=== PATIENT | female | born 1970 | race African-American/Black ===

== ENCOUNTER 2018-08-14 07:01 | Emergency (ER) | payer BC ==
--- NOTE | 2018-08-14 07:07 | UC ---
Respiratory Complaint HPI - HPI Summary HPI Summary: Patient is 48 year old female, who present today to the urgent care with for sinus pressure and headache past 2 weeks. She was seen at [facility] urgent care and did 10 days of Augmentin which she completed 4 days ago and still has symptoms. Headache is mainly frontal, there is associated fullness in her ears. She tried Neti -pot with some clearing and lot of discharge. She reports that she has been having this sinusitis flares for past 3-4 years and had seen ENT a few years back She notices some cough at times denies any fever, chills or chest pain or shortness of breath Denies any abdominal pain , nausea or vomiting , diarrhea or constipation. Patient tried Advil sinus relief without much relief. - History of Current Complaint Stated Complaint: SINUS PAIN Time Seen by Provider: 08/14/18 07:05 Hx Obtained From: Patient Hx Last Menstrual Period: status post hysterectomy - Allergies/Home Medications Allergies/Adverse Reactions: Allergies Allergy/AdvReac Type Severity Reaction Status Date / Time MS Sulfamethoxazole Allergy Severe nausea, Verified 11/10/15 10:17 w/Trimethoprim vomiting [From Bactrim] Home Medications: Home Medications Esomeprazole(NF) [Nexium(NF)] 08/14/18 [History] Naproxen Sodium/Pseudoephedrin [Aleve-D Sinus and Cold Caplet] 08/14/18 [ History] PMH/Surg Hx/FS Hx/Imm Hx - Additional Past Medical History Additional PMH: Hypothyroidism Gastritis Prior episodes of sinusitis - Surgical History Surgical History: Yes Surgery Procedure, Year, and Place: tubal, hysterectomy. choley - Family History Known Family History: Positive: None, Hypertension - Mother, Diabetes, Other - NONCONTRIBUTORY Family History: FHx of Lung CA (Mother) - Social History Alcohol Use: Occasionally Substance Use Type: None Smoking Status (MU): Never Smoked Tobacco Review of Systems All Other Systems Reviewed And Are Negative: Yes Constitutional: Positive: Fatigue Skin: Positive: Negative Eyes: Positive: Negative ENT: Positive: Sinus Congestion, Sinus Pain/Tenderness, Other - Ear fullness Respiratory: Positive: Negative Cardiovascular: Positive: Negative Gastrointestinal: Positive: Negative Genitourinary: Positive: Negative Motor: Positive: Negative Neurovascular: Positive: Negative Musculoskeletal: Positive: Negative Neurological: Positive: Headache - Frontal Psychological: Positive: Negative Is Patient Immunocompromised?: No Physical Exam - Summary Physical Exam Summary: Physical Exam: Const: Appears well. No signs of apparent distress present. Alert and oriented x 3. Musculo: Walks with a normal gait. Head/Face: Atraumatic, normocephalic on inspection. Eyes: EOMI and PERRLA in both eyes. Conjunctivae clear. No discharge noted ENT: Tenderness to palpation is mainly noted at the ethmoid and maxillary sinuses bilaterally. Hearing normal, TM normal appearing bilaterally . Nontender bilateral anterior cervical lymph nodes No significant pharyngeal erythema or exudates Respiratory: Respirations are unlabored. Lungs clear to auscultation bilaterally, no wheezing , rhonchi or rales noted . CVS: Regular rate and Rhythm, S1S2 normal , no murmurs identified. Extremities: Peripheral circulation is grossly normal. Pulses 2+ Abdomen : Soft non tender , nondistended , Bowel sounds present . No guarding , rebound tenderness or rigidity noted. Skin: No lesions or rash located on the upper extremities or on the lower extremities. Neuro: Cranial nerves II to XII intact, motor and sensory intact. DTR Intact bilaterally. Mood is normal. Affect is normal. Triage Information Reviewed: Yes Vital Signs Reviewed: Yes Respiratory Course/Dx - Course Course Of Treatment: During the visit today, we discussed the findings and further plan. I will prescribe the medication to the pharmacy . Since she develops yeast vaginitis after course of antibiotics , I will also prescribe fluconazole so that if she needs she can take it. We discussed that she might need CT scan and further evaluation with ENT so she'll follow up with ENT if no improvement for definitive management. Patient expressed understanding . - Differential Dx/Diagnosis Provider Diagnosis: Sinusitis Discharge - Sign-Out/Discharge Documenting (check all that apply): Patient Departure All imaging exams completed and their final reports reviewed: Yes - Discharge Plan Condition: Stable Disposition: HOME Prescriptions: Fluconazole 150 MG TAB* [Diflucan 150 MG TAB*] 150 mg PO ONCE 1 Days #1 tablet Levofloxacin TAB* [Levaquin 750 MG TAB*] 750 mg PO DAILY 7 Days #7 tab Patient Education Materials: Sinusitis (ED) Referrals: Maribel Garzon MD [Primary Care Provider] - 1 Week Jewel Church MD [Medical Doctor] - 1 Week Additional Instructions: Please start taking the medication as prescribed to the pharmacy . If he developed yeast infection take one dose of fluconazole. Follow up with your primary care doctor in 1 week. Please follow up with ENT for the consult in 1 week. Patients blood pressure slightly high in Urgent care today , plan follow up with PCP for better control Return to Urgent care / ER if symptoms get worse. - Billing Disposition and Condition Condition: STABLE Disposition: Home
[2018-08-14 07:15] VITALS: BP 151/99
== END 2018-08-14 07:42 | disposition home or self-care (01) ==
LOC: UCEAST 07:01
DX: J32.9 Chronic sinusitis, unspecified (principal); Z88.2 Allergy status to sulfonamides
CPT/HCPCS: 99211; G0463

== ENCOUNTER 2019-12-09 21:55 | Emergency (ER) | payer BC, OTHER ==
--- OUTSIDE RECORDS SUMMARY | 2019-12-09 22:33 | XMS REPORT | Summary of Care ---
:1970 Author Organization [facility] Address [address] [place] [address] Care Team Providers Name Role Phone RyannMaribel Primary Care Provider Reason for Visit Reason Comments Cough Encounter Details Date Type Department Care Team Description 12/04/2019 Office Visit [place] Kelsi Reddy FNP-C Viral illness Practice [address] [facility] (Primary Dx) [address] [place] [address] [place] [address] [phone] Allergies Active Allergy Reactions Severity Noted Date Comments Bactrim 04/17/2008 documented as of this encounter (statuses as of 12/04/2019) Medications Medication Sig Dispensed Refills Start Date End Date Status Multivital Oral Tab Take by mouth. 0 Active IBUPROFEN PO Take 600 mg by 0 Active mouth NEEDED. valacyclovir (VALTREX) Take 4 Tabs by 16 Tab 3 03/18/2017 Active 500 MG Oral mouth TWICE TabIndications: DAILY. 8 pills Recurrent cold sores per occurrence PSEUDOEPHEDRINE HCL PO Take by mouth 0 Active NEEDED. Dvyxqpkzjgukh-RQ-GV-APA Take by mouth. 0 Active P (MUCINEX SINUS-MAX) [id number] MG Oral Cap fluocinonide (LIDEX) APPLY TWO TIMES A 15 g 0 02/21/2019 Active 0.05 % Apply externally DAY SPARINGLY OintmentIndications: Itching fluticasone (FLONASE) USE 2 SPRAYS IN 1 Bottle 5 04/17/2019 Active 50 MCG/ACT Nasal EACH NOSTRIL ONCE Suspension DAILY levothyroxine TAKE ONE TABLET 90 Tab 0 09/25/2019 Active (SYNTHROID) 175 MCG BY MOUTH EVERY Oral Tab MORNING BEFORE BREAKFAST documented as of this encounter (statuses as of 12/04/2019) Active Problems Problem Noted Date GERD (gastroesophageal reflux disease) 07/30/2017 Overview: On PPI Since 2015- Started in the hospital - Chest pain - S/P IQRA (total abdominal hysterectomy) 07/31/2014 Overview: Has ovaries; No cervix 2010 Knee pain, right 09/18/2013 Overview: Saw Dr Martinez Medial meniscus tear 09/18/2013 Overview: MRI shows thinning and degeneration but not silvana tear BMI 34.0-34.9,adult 02/10/2011 Overview: This patient's BMI has been calculated and is above average, and BMI management plan is completed. General patient education discussion including: obesity-related excess mortality Status post cholecystectomy 03/11/2009 Overview: 2006 Family hx-breast malignancy 07/13/2008 Overview: Replaced inactive diagnosis Hypothyroidism 04/17/2008 Overview: S/P I-131 ablation, 1996. Gestational diabetes 04/17/2008 Anemia 04/17/2008 Head injury 04/17/2008 Overview: Workers Comp, DOI: 03/23/2006, patient preparing meals at work, felt lightheaded, lost consciousness and fell to floor. [facility] ER, evaluation included CT scan of brain as well as plain film x-rays of the cervical spine, which were all completely normal. Lab work showed mild anemia with a hemoglobin of 10.2 and hematocrit of 20. documented as of this encounter (statuses as of 12/04/2019) Immunizations Name Administration Dates Next Due Influenza (IM) Preservative Free 06/12/2016, 09/07/2012 TDAP Vaccine 03/16/2019, 07/13/2008 Tuberculin Skin Test 01/26/2003 documented as of this encounter Social History Tobacco Use Types Packs/Day Years Used Date Former Smoker 0.25 Smokeless Tobacco: Never Used Alcohol Use Drinks/Week oz/Week Comments No 0 Standard drinks or equivalent 0.0 occas Sex Assigned at Date Recorded Not on file documented as of this encounter Last Filed Vital Signs Vital Sign Reading Time Taken Comments Blood Pressure 122/80 12/04/2019 1:59 PM EDT Pulse 89 12/04/2019 1:59 PM EDT Temperature 36.9 12/04/2019 1:59 PM EDT C (98.4 F) Respiratory Rate 20 12/04/2019 1:59 PM EDT Oxygen Saturation 99% 12/04/2019 1:59 PM EDT Inhaled Oxygen Concentration - - Weight - - Height - - Body Mass Index - - documented in this encounter Progress Notes Kelsi Lucas FNP-C - 12/04/2019 1:20 PM EDT PATIENT: Renetta Morales : 1970 DATE OF SERVICE: 12/04/2019 CHIEF COMPLAINT: Chief Complaint Patient presents with ? Cough Subjective HISTORY OF PRESENT ILLNESS: Renetta Morales is a 49-y.o. female. Complaint of cough that started 5 days ago Intermittent headaches Mild sore throat Sometimes cough is productive Denies nasal congestion denies fever and chills Denies N/V/D took theraflu with some relief Past Medical History: Diagnosis Date ? Anemia 04/17/2008 ? Asthma ? Gestational diabetes 04/17/2008 ? Head injury 04/17/2008 Workers Comp, DOI: 03/23/2006, patient preparing meals at work, felt lightheaded, lost consciousness and fell to floor. [facility] ER, evaluation included CT scan of brain as well as plain film x-rays of the cervical spine, which were all completely normal. Lab work showed mild anemia with a hemoglobin of 10.2 and hematocrit of 20. ? History of breast surgery ? Hypothyroidism 04/17/2008 S/P I-131 ablation, 1996. Family History Problem Relation Age of Onset ? Hypertension Mother ? Breast Cancer Mother 56 ? Diabetes Mother ? Hypertension Father ? Asthma Sister Current Outpatient Medications Medication Sig ? fluocinonide (LIDEX) 0.05 % Apply externally Ointment APPLY TWO TIMES A DAY SPARINGLY ? fluticasone (FLONASE) 50 MCG/ACT Nasal Suspension USE 2 SPRAYS IN EACH NOSTRIL ONCE DAILY ? IBUPROFEN PO Take 600 mg by mouth NEEDED. ? levothyroxine (SYNTHROID) 175 MCG Oral Tab TAKE ONE TABLET BY MOUTH EVERY MORNING BEFORE BREAKFAST ? Multivital Oral Tab Take by mouth. ? Cjqicgpflnkwl-MC-TO-APAP (MUCINEX SINUS-MAX) 4-46-285-325 MG Oral Cap Take by mouth. ? PSEUDOEPHEDRINE HCL PO Take by mouth NEEDED. ? valacyclovir (VALTREX) 500 MG Oral Tab Take 4 Tabs by mouth TWICE DAILY. 8 pills per occurrence No current facility-administered medications for this visit. Allergies Allergen Reactions ? Bactrim Social History Socioeconomic History ? Marital status: Spouse name: Not on file ? Number of children: Not on file ? Years of education: Not on file ? Highest education level: Not on file Occupational History ? Not on file Social Needs ? Financial resource strain: Not on file ? Food insecurity Worry: Not on file Inability: Not on file ? Transportation needs Medical: Not on file Non-medical: Not on file Tobacco Use ? Smoking status: Former Smoker Packs/day: 0.25 ? Smokeless tobacco: Never Used Substance and Sexual Activity ? Alcohol use: No Alcohol/week: 0.0 standard drinks Comment: occas ? Drug use: No ? Sexual activity: Yes Partners: Male Lifestyle ? Physical activity Days per week: Not on file Minutes per session: Not on file ? Stress: Not on file Relationships ? Social connections Talks on phone: Not on file Gets together: Not on file Attends latter-day service: Not on file Active member of club or organization: Not on file Attends meetings of clubs or organizations: Not on file Relationship status: Not on file ? Intimate partner violence Fear of current or ex partner: Not on file Emotionally abused: Not on file Physically abused: Not on file Forced sexual activity: Not on file Other Topics Concern ? Not on file Social History Narrative . 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 HENT: Positive for sore throat. Negative for congestion. Respiratory: Positive for cough. Negative for shortness of breath. Cardiovascular: Negative for chest pain and palpitations. Gastrointestinal: Negative for abdominal pain, diarrhea, nausea and vomiting. Genitourinary: Negative for dysuria. Musculoskeletal: Negative for myalgias. Skin: Negative for rash. Neurological: Positive for headaches. Psychiatric/Behavioral: Negative for depression. Objective PHYSICAL EXAM: VITALS: BP 122/80 | Pulse 89 | Temp 98.4 F (36.9 C) | Resp 20 | LMP 12/30/2010 | SpO2 99% There is no height or weight on file to calculate BMI. Physical Exam ASSESSMENT / IMPRESSION: ICD-9-CM ICD-10-CM 1. Viral illness 079.99 B34.9 Plan You have a viral illness and there is no indication for antibiotic treatment Treatment is supportive care Increase fluids and rest Take acetaminophen or ibuprofen for pain fever as needed follow-up if no improvement Author: SMOOTH Amin 12/04/2019 15:42 documented in this encounter Plan of Treatment Health Maintenance Due Date Last Done Comments MAMMOGRAM (SCREENING) 11/26/2019 11/25/2018, 04/26/2017, 04/20/2017, Additional history exists DEPRESSION SCREENING 03/16/2020 03/16/2019 DIABETES SCREENING 03/20/2020 03/20/2019, 03/20/2019, 07/30/2017, Additional history exists PAP SMEAR 03/30/2020 03/30/2017, 02/10/2011, 07/13/2008, Additional history exists INFLUENZA VACCINE (Season 04/30/2020 06/12/2016, 09/07/2012 Ended) LIPID DISORDER SCREENING 03/20/2024 03/20/2019, 07/30/2017, 12/20/2012, Additional history exists DTaP/Tdap/Td Vaccines (3 - 03/16/2029 03/16/2019, 07/13/2008 Tdap) HEPATITIS A IMMUNIZATION Aged Out No longer eligible SERIES based on patient's age to complete this topic HPV IMMUNIZATION SERIES Aged Out No longer eligible based on patient's age to complete this topic MENINGOCOCCAL VACCINE IMM Aged Out No longer eligible based on patient's age to complete this topic PNEUMOCOCCAL 0-64 YRS Aged Out No longer eligible based on patient's age to complete this topic documented as of this encounter Results Not on filedocumented in this encounter Visit Diagnoses Diagnosis Viral illness Unspecified viral infection, in conditions classified elsewhere and of unspecified site documented in this encounter Insurance Payer Benefit Plan / Subscriber ID Effective Dates Phone Address Type Group [employer] [id number] 2017-Present [employer] documented as of this encounter"
--- NOTE | 2019-12-09 23:04 | ED ---
Shortness of Breath - HPI Summary HPI Summary: 49-year-old female presenting to [facility] for evaluation of worsening SOB since onset 12/04/2019. She reports that she had visited her PCP when she began to feel SOB, and she was advised to stay at home and rest as her symptoms seem viral. She has been at home since, but the SOB seems to be worsening. Today, she used two nebulizer treatments to no relief, which are her sons as she does not have asthma or respiratory history. She endorses a mild cough and sore throat, but she denies any fevers. She has been taking OTC flu medications initially but has not taken anything in the last few days. She states she went to the [address] today and was tested. However, she also shows concern for symptoms relating to anxiety. She is not in any pain. Past medical history includes hypothyroidism, cholecystectomy, tubal ligation, hysterectomy. Family history of diabetes, hypertension, lung cancer in mother. Nonsmoker. Admits to occasional alcohol use. No substance use. Medications reviewed. Allergies noted. - History of Current Complaint Chief Complaint: EDShortnessOfBreath Time Seen by Provider: 12/09/19 22:53 Hx Obtained From: Patient Onset/Duration: Gradual Onset, Lasting Days, Still Present Current Severity: Mild Dyspnea At: Rest Aggravating Factors: Nothing Alleviating Factors: Nothing Associated Signs & Symptoms: Cough (Nonproductive) - Allergy/Home Medications Allergies/Adverse Reactions: Allergies Allergy/AdvReac Type Severity Reaction Status Date / Time sulfamethoxazole Allergy Nausea And Verified 12/09/19 22:44 [From Bactrim] Vomiting trimethoprim [From Bactrim] Allergy Nausea And Verified 12/09/19 22:44 Vomiting Home Medications: Home Medications Levothyroxine TAB* [Synthroid 150 MCG TAB*] 150 mcg PO DAILY 10/26/14 [History Confirmed 10/26/14] Ibuprofen TAB* [Motrin TAB* 600 MG] 600 mg PO Q6H PRN #20 tab 01/12/16 [Rx] Multiple Vitamins W/ Minerals [Multivitamin Adults] 01/12/16 [History] Esomeprazole(NF) [Nexium(NF)] 08/14/18 [History] Fluconazole 150 MG TAB* [Diflucan 150 MG TAB*] 150 mg PO ONCE 1 Days #1 tablet 08/14/18 [Rx] Levofloxacin TAB* [Levaquin 750 MG TAB*] 750 mg PO DAILY 7 Days #7 tab 08/14/18 [Rx] Naproxen Sodium/Pseudoephedrin [Aleve-D Sinus and Cold Caplet] 08/14/18 [ History] PMH/Surg Hx/FS Hx/Imm Hx Endocrine/Hematology History: Reports: Hx Thyroid Disease Denies: Hx Diabetes Cardiovascular History: Denies: Hx Hypertension Respiratory History: Denies: Hx Asthma, Hx Chronic Obstructive Pulmonary Disease (COPD) GI History: Denies: Hx Ulcer Sensory History: Reports: Hx Contacts or Glasses Opthamlomology History: Reports: Hx Contacts or Glasses - Surgical History Surgical History: Yes Surgery Procedure, Year, and Place: tubal, hysterectomy. choley Infectious Disease History: No Infectious Disease History: Denies: Hx Clostridium Difficile, Hx Hepatitis, Hx Human Immunodeficiency Virus (HIV), Hx of Known/Suspected MRSA, Hx Shingles, Hx Tuberculosis, Hx Known/ Suspected VRE, History Other Infectious Disease, Traveled Outside the [place] in Last 30 Days - Family History Known Family History: Positive: Hypertension - Mother, Diabetes, Other - NONCONTRIBUTORY Family History: FHx of Lung CA (Mother) - Social History Alcohol Use: Occasionally Hx Substance Use: No Substance Use Type: Reports: None Hx Tobacco Use: No Smoking Status (MU): Never Smoked Tobacco - Additional Comments History Additional Comments: hypothyroidism Review of Systems - ROS Summary Review of Systems Summary: Home Medications Medication Instructions Recorded Confirmed Type Levothyroxine TAB* [Synthroid 150 150 mcg PO DAILY 10/26/14 10/26/14 History MCG TAB*] Ibuprofen TAB* [Motrin TAB* 600 MG] 600 mg PO Q6H PRN #20 tab 01/12/16 Rx Multiple Vitamins W/ Minerals 01/12/16 History [Multivitamin Adults] Esomeprazole(NF) [Nexium(NF)] 08/14/18 History Fluconazole 150 MG TAB* [Diflucan 150 mg PO ONCE 1 Days #1 tablet 08/14/18 Rx 150 MG TAB*] Levofloxacin TAB* [Levaquin 750 MG 750 mg PO DAILY 7 Days #7 tab 08/14/18 Rx TAB*] Naproxen Sodium/Pseudoephedrin 08/14/18 History [Aleve-D Sinus and Cold Caplet] Negative: Fever Positive: Sore Throat Positive: Shortness Of Breath, Cough - mild All Other Systems Reviewed And Are Negative: Yes Physical Exam - Summary Physical Exam Summary: General: Well-developed, Well-nourished female. No acute distress. HEENT: Normocephalic, Atraumatic. Eyes: Conjuctiva normal, PERRL. Oropharynx: Clear, mucous membranes moist, (-) exudates. Neck: Soft, FROM, (-) lymphadenopathy, (-) thyromegaly, (-) JVD. Cardiovascular: Normal sinus rhythm, (-) murmur. Lungs: Clear to auscultation bilaterally (-) wheezes, (-) rales, (-) rhonchi. Abdomen: Soft, non-tender, non-distended, (-) organomegaly, normal bowel sounds. Back: (-) CVA tenderness Extremities: No edema. Skin: Warm, dry, (-) rash. Neuro: Alert and oriented x3, moves all extremities equally. No ataxia. No gait disturbance. No sensory deficit. Normal strength, normal sensation. Psychiatric: Mood normal, affect normal. Triage Information Reviewed: Yes Vital Signs On Initial Exam: Initial Vitals Temp Pulse Resp BP Pulse Ox 97.7 F 107 16 158/102 98 12/09/19 22:19 12/09/19 22:19 12/09/19 22:19 12/09/19 22:19 12/09/19 22:19 Vital Signs Reviewed: Yes Procedures - Sedation Patient Received Moderate/Deep Sedation with Procedure: No Diagnostics - Vital Signs Vital Signs Temp Pulse Resp BP Pulse Ox 12/09/19 22:19 97.7 F 107 16 158/102 98 - Laboratory Result Diagrams: 12/09/19 23:40 12/09/19 23:40 Lab Statement: Any lab studies that have been ordered have been reviewed, and results considered in the medical decision making process. - Radiology CXR Radiology Interpretation Completed By: ED Physician Summary of Radiographic Findings: No infiltrate. No pleural effusion. This film was reviewed and interpreted by Dr. Vegas, pending official read. Re-Evaluation - Re-Evaluation First Eval Re-Evaluation Time: 00:20 Comment: I discussed all results. Discussed all symptoms that warrant return to the ED. Course/Dx - Course Course Of Treatment: 49-year-old female presents for shortness of breath. she states she started feeling ill on Wednesday. Went to see her PCP. Was told it was viral and to rest. She states since that time the shortness of breath seems to be getting worse. No fevers. No significant cough. She does admit to mild sore throat. Has been taking nysr-jpf-nzemkux cold preparations. Even tried 2 of her son's nebulizer treatments today without any relief. she states she did go to the drive-through testing for Covid-19 today. was advised to come in and get a chest x-ray. Patient has no significant findings on physical exam. Workup demonstrates a normal white count. Chest x-ray demonstrates no acute process. Patient diagnosed with a viral syndrome. Advised her to self quarantine at home. Plenty of rest and fluids Tylenol or ibuprofen as needed. await coated test results. Follow up with PCP. Follow-up sooner for any worsening symptoms. - Diagnoses Provider Diagnoses: Viral syndrome Discharge ED - Sign-Out/Discharge Documenting (check all that apply): Patient Departure - Patient will be discharged home. - Discharge Plan Condition: Stable Disposition: HOME Patient Education Materials: Viral Syndrome (ED) Forms: COVID-19 Tested & Isolation Referrals: Maribel Garzon MD [Primary Care Provider] - 3 Days Additional Instructions: You were seen in the emergency department for coronavirus rule out. The department of health will contact you within 24 hours. Due to the pandemic, you should stay in your house and self quarantine. See the separate quarantine paper for further instructions. You should wear a mask if you're outside of your personal room. We encourage handwashing as well as limited contact with other people including the elderly and the immunocompromised. If any studies were not completed at the time of discharge you will be called with the relevant results. Return to emergency department for severe trouble breathing, worsening or concerning symptoms. - Billing Disposition and Condition Condition: STABLE Disposition: Home - Attestation Statements Document Initiated by Rene: Yes Documenting Scribe: Carlotta Arambula Provider For Whom Rene is Documenting (Include Credential): Comfort Vegas MD Scribe Attestation: Carlotta Sandoval scribed for Comfort Vegas MD on 12/10/19 at 0043. Scribe Documentation Reviewed: Yes Provider Attestation: The documentation as recorded by the Carlotta young accurately reflects the service I personally performed and the decisions made by me, Comfort Vegas MD Status of Scribalexander Document: Viewed
[2019-12-09 23:50] LABS: ABS Basophils 0.1 10^3/ul (0-0.2); ABS Lymphocytes 1.9 10^3/ul (1.0-4.8); ABS Monocytes 0.6 10^3/ul (0-0.8); ABS Neutrophils 6.9 10^3/ul (1.5-7.7); Hematocrit 38 % (35-47); Hemoglobin 12.6 g/dL (12.0-16.0); Lymphocyte % 19.6 %; Mean Corpuscular HGB Conc 34 g/dL (31-36); Mean Corpuscular Hemoglobin 27 pg (27-31); Mean Corpuscular Volume 79 fL (80-97); Mean Platelet Volume 9.2 fL (7.4-10.4); Platelet Count 311 10^3/uL (150-450); Red Blood Count 4.75 10^6 /uL (3.70-4.87); Red Cell Distribution Width 13 % (10-15); White Blood Count 9.5 10^3/uL (3.5-10.8)
[2019-12-10 00:08] LABS: ALT 9 U/L (7-52); AST 10 U/L (13-39); Albumin 4.7 g/dL (3.2-5.2); Albumin/Globulin Ratio 1.5 (1-3); Alkaline Phosphatase 51 U/L (34-104); Anion Gap 7 mmol/L (2-11); BUN/Creatinine Ratio 9.1 (8-20); Blood Urea Nitrogen 6 mg/dL (6-24); CO2 Carbon Dioxide 26 mmol/L (22-32); Calcium 10.1 mg/dL (8.6-10.3); Chloride 104 mmol/L (101-111); EGFR African American 116.2 (>60); Globulin 3.1 g/dL (2-4); Glucose 121 mg/dL (70-100); Potassium 3.5 mmol/L (3.5-5.0); Sodium 137 mmol/L (135-145); Total Protein 7.8 g/dL (6.4-8.9)
[2019-12-10 00:15] LABS: HCG Pregnancy < 0.60 mIU/mL
[2019-12-10 00:16] LABS: Influenza A Molecular Negative (Negative); Influenza B Molecular Negative (Negative)
[2019-12-10 00:24] VITALS: BP 156/94
== END 2019-12-10 00:27 | disposition home or self-care (01) ==
LOC: ED 21:55
DX: B34.9 Viral infection, unspecified (principal); R05 Cough; Z88.2 Allergy status to sulfonamides; Z79.899 Other long term (current) drug therapy; R06.02 Shortness of breath; Z79.890 Hormone replacement therapy; E03.9 Hypothyroidism, unspecified; J02.9 Acute pharyngitis, unspecified; Z20.828 Contact with and (suspected) exposure to other viral communicable diseases
CPT/HCPCS: 36415; 71045; 80053; 83605; 84484; 84702; 85025; 99282

== ENCOUNTER 2022-05-12 08:29 | Observation (INO) ==
[~2022-05-12 08:29] MED LIST: Buffered Lidocaine 1% SYRIN 1 ml INTRADERM ONE; Lactated Ringers 1000 ml BAG 1,000 ML IV SCH
[2022-05-12] MEDS ORDERED: ceFAZolin 2 GM PREMIX 2 GM/50 ML BAG ONE (08:53)
[2022-05-12] MEDS ORDERED: BUPIVACAINE **LIPOSOME/PF 13.3 MG/ML (266MG/ 20ML) VIAL (RESTRICTED) INFIL ONE (09:00)
[2022-05-12] MEDS ORDERED: Bupivacaine 0.25% EPI 200,000 30 ML SDV ONE (10:07)
[2022-05-12] MEDS ORDERED: Midazolam 2 mg/2 ml VIAL 1 mg/ml 2 ml VIAL (2 mg) ONE (10:09)
[2022-05-12] MEDS ORDERED: Bupivacaine 0.5% SDV PF 30ML VIAL ONE (10:10)
[2022-05-12] MEDS ORDERED: Lidocaine 2% PF 5 ML VIAL ONE (10:10)
[2022-05-12] MEDS ORDERED: Phenylephrine IV 10 MG/ML 1 ml VIAL ONE (10:12)
[2022-05-12] MEDS ORDERED: fentaNYL 100 mcg/2 ml 50 MCG/ML VIAL IV PRN (11:45)
[2022-05-12] MEDS ORDERED: Acetaminophen IV 1 GM/100ML 1,000 MG/100 ML BAG IV PRN (11:45)
[2022-05-12] MEDS ORDERED: Ondansetron 4 mg VIAL 2 MG/ML 2 ml VIAL IV PRN ×2 (11:45→13:50)
[2022-05-12] MEDS ORDERED: Naloxone 0.4 mg VIAL 0.4 mg/ml 1 ml VIAL IV PRN (11:45)
[2022-05-12] MEDS ORDERED: Magnesium Hydroxide LIQ 30 ML UDC PO PRN (13:50)
[2022-05-12] MEDS ORDERED: Ondansetron ODT 4 mg TAB 4 MG TAB PO PRN (13:50)
[2022-05-12] MEDS ORDERED: Lactulose 30 ml UDC PO PRN (13:50)
[2022-05-12] MEDS ORDERED: Morphine 2 MG/ML SYRINGE IV PRN (13:50)
[2022-05-12] MEDS ORDERED: Acetaminophen IV 1 GM/100ML 1,000 MG/100 ML BAG IV ONE (14:22)
[2022-05-12] MEDS: Lactated Ringers 1000 ml BAG 1,000 ML IV SCH (15:36)
[2022-05-12] MEDS: ceFAZolin 1 GM ADVAN 1 GM in NS 0.9% 50 ML 50 ML IVPB SCH (21:43)
[2022-05-12] MEDS: Magnesium Hydroxide LIQ 30 ML UDC PO SCH (23:38)
[2022-05-13] MEDS: Lactated Ringers 1000 ml BAG 1,000 ML IV SCH (02:11)
[2022-05-13] MEDS: ceFAZolin 1 GM ADVAN 1 GM in NS 0.9% 50 ML 50 ML IVPB SCH ×2 (03:55→11:11)
[2022-05-13 06:14] LABS: Hematocrit 28 % (35-47); Hemoglobin 9.4 g/dL (12.0-16.0); Mean Platelet Volume 8.6 fL (7.4-10.4); Platelet Count 227 10^3/uL (150-450)
[2022-05-13 06:51] LABS: Calcium 8.5 mg/dL (8.6-10.3); Potassium 4.3 mmol/L (3.5-5.0); eGFR CKD-EPI 106.7 (>60)
[2022-05-13] MEDS: Magnesium Hydroxide LIQ 30 ML UDC PO SCH (08:32)
[2022-05-13] MEDS ORDERED: Vitamin THERAPEUTIC TAB PO SCH (09:00)
[2022-05-13 10:47] VITALS: BP 124/76
== END 2022-05-13 13:15 | disposition home or self-care (01) ==
LOC: SSU 08:29 → OR 08:29
PROVIDERS: ADMIT Orthopaedic Surgery Sports Medicine; ATTEND Orthopaedic Surgery Sports Medicine